=== PATIENT | female | born 1975 | race Caucasian/White ===

== ENCOUNTER 2024-02-03 10:43 | Emergency (ER) | payer OTHER ==
[~2024-02-03] VITALS: Ht 170.2 cm; Wt 77.3 kg
[2024-02-03 10:43] VITALS: TEMP 98
[2024-02-03 11:01] VITALS: BP 124/78; PULSE 72; RESP 16
[2024-02-03] MEDS: IBUPROFEN 600 MG TABLET PO ONE (11:16)
[2024-02-03] MEDS: PERTUSS(ACELL),DIPH,TET/PF 0.5 ML SYRINGE [ADULT] IM. ONE (11:17)
== END 2024-02-03 11:20 | disposition home or self-care (01) ==
LOC: EMS 10:43
DX: T63.301A Toxic effect of unspecified spider venom, accidental (unintentional), initial encounter (principal); W57.XXXA Bitten or stung by nonvenomous insect and other nonvenomous arthropods, initial encounter; Y93.89 Activity, other specified; Y92.89 Other specified places as the place of occurrence of the external cause; Y99.8 Other external cause status
CPT/HCPCS: 90471; 90715; 99283